=== PATIENT | male | born 1960 | race African-American/Black ===

== ENCOUNTER 2016-10-10 17:52 | Emergency (ER) | payer MEDICARE, OTHER ==
[~2016-10-10] VITALS: Ht 170.2 cm; Wt 59.1 kg
[2016-10-10] MEDS ORDERED: SUCR500T PO ×2 (18:04→23:33)
[2016-10-10] MEDS ORDERED: CINA30 PO ×2 (18:04→23:33)
[2016-10-10 20:18] LABS: CALCIUM, TOTAL 10.7 mg/dL (8.8-10.5); CREATININE 8.72 mg/dL (0.60-1.30); POTASSIUM 3.9 mmol/L (3.5-5.1)
[2016-10-10 20:21] LABS: BASOPHILS # (AUTO) 0.01 K/uL (0.00-0.20); BASOPHILS % (AUTO) 0.1 % (0.0-2.0); EOSINOPHILS # (AUTO) 0.12 K/uL (0.00-0.70); HEMATOCRIT 48.7 % (41-53); HEMOGLOBIN 16.3 g/dL (13.5-17.5); LYMPHOCYTES % (AUTO) 11.7 % (22.0-44.0); MEAN CORPUSCULAR HEMOGLOBIN 36.8 pg (26.0-34.0); MEAN CORPUSCULAR HGB CONC 33.5 G/dL (31.0-37.0); MEAN CORPUSCULAR VOLUME 110 fL (80-100); MONOCYTES # (AUTO) 0.6 K/uL (0.1-1.0); NEUTROPHILS # (AUTO) 6.8 K/uL (1.8-7.7); NEUTROPHILS % (AUTO) 79.8 % (40.0-70.0); PLATELET COUNT (AUTO) 178 K/uL (150-450); RED BLOOD CELL COUNT(AUTO) 4.44 MIL/uL (4.50-5.90); WHITE BLOOD COUNT (AUTO) 8.5 K/uL (4.5-11.0)
[2016-10-10 20:43] LABS: ALBUMIN 4.3 g/dL (3.4-5.0); BILIRUBIN,TOTAL 0.5 mg/dL (0.1-1.0); CREATINE KINASE MB 6.2 ng/mL (0-5); TOTAL PROTEIN, SERUM 9.7 g/dL (6.4-8.2)
[2016-10-10 20:44] LABS: INR 1.1 (0.9-1.1); PROTHROMBIN TIME 11.4 SEC (9.4-11.6)
[2016-10-10 20:54] LABS: RBC MORPHOLOGY COMMENT ABNORMAL RBC MORPH
[2016-10-10] MEDS ORDERED: BUPIVACAINE HCL/PF 0.25% 10 ML VIAL INJ ONE (23:30)
[2016-10-10] MEDS ORDERED: CALCIUM GLUCONATE 100 MG/ML 10 ML IVP ONE (23:30)
[2016-10-10] MEDS ORDERED: SODIUM CHLORIDE 0.9% 250 ML IV ONE (23:30)
[2016-10-10] MEDS ORDERED: DILTIAZEM HCL 5 MG/ML 5 ML VIAL IVP ONE (23:30)
[2016-10-10] MEDS ORDERED: ONDANSETRON HCL 4 MG/2 ML VIAL IVP ONE (23:30)
[2016-10-10] MEDS ORDERED: CARV25 PO (23:33)
[2016-10-11] MEDS ORDERED: LIDOCAINE HCL 1% 20 ML VIAL INJ ONE
[2016-10-11 00:57] LABS: CREATINE KINASE MB 4.8 ng/mL (0-5); CREATINE KINASE, TOTAL 501 U/L (39-308)
[2016-10-11] MEDS ORDERED: BACITRACIN 0.9 GM PACKET OINTMENT TP ONE (01:30)
[2016-10-11 01:53] VITALS: BP 115/83
== END 2016-10-11 02:04 | disposition left against medical advice (07) ==
LOC: EMS 17:56
DX: R55 Syncope and collapse (principal); S01.81XA Laceration without foreign body of other part of head, initial encounter; S00.531A Contusion of lip, initial encounter; I12.0 Hypertensive chronic kidney disease with stage 5 chronic kidney disease or end stage renal disease; N18.6 End stage renal disease; I48.91 Unspecified atrial fibrillation; Z99.2 Dependence on renal dialysis; W22.8XXA Striking against or struck by other objects, initial encounter; Y93.89 Activity, other specified; Y92.89 Other specified places as the place of occurrence of the external cause; Y99.8 Other external cause status
CPT/HCPCS: 12013; 36415; 70450; 80053; 82550; 82553; 83880; 84484; 85025; 85610; 85730; 93005; 96361; 96374; 96375; 99285; J0610; J2405; J3490 ×2; J7040